=== PATIENT | male | born 1955 | race Caucasian/White ===

== ENCOUNTER 2022-07-25 17:16 | Emergency (ER) | payer MEDICARE, OTHER ==
[~2022-07-25] VITALS: Ht 157.5 cm; Wt 90.7 kg
[2022-07-25] MEDS ORDERED: CYCLOBENZAPRINE 10 MG TABLET PO ONE (18:00)
[2022-07-25] MEDS ORDERED: KETOROLAC TROMETHAMINE INJ 30 MG/ML VIAL IV ONE (18:00)
[2022-07-25] MEDS ORDERED: CYCLOBENZAPRINE 10 MG TABLET ONE (18:07)
[2022-07-25] MEDS ORDERED: KETOROLAC TROMETHAMINE INJ 30 MG/ML VIAL ONE (18:07)
--- NOTE | 2022-07-25 18:15 | NUR ---
medicated as ordered
--- NOTE | 2022-07-25 18:23 | NUR ---
PT REFUSED BLOOD DRAW. EXPLAINED IMPORTANCE OF BLOOD DRAW FOR DIAGNOSTIC PURPOSES BUT PT STILL REFUSED. DR. COSTA AWARE.
--- NOTE | 2022-07-25 18:23 | NUR ---
pt taken to CT
--- NOTE | 2022-07-25 18:24 | NUR ---
PT REFUSED CT SCAN; EXPLAINED IMPORTANCE OF PROCEDURE FOR DIAGNOSTIC PURPOSES BUT STILL REFUSED. DR COSTA AWARE
[2022-07-25] MEDS ORDERED: KETO10TA2 PO (18:57)
[2022-07-25] MEDS ORDERED: CYCL5TAB PO (18:57)
--- NOTE | 2022-07-25 19:20 | NUR ---
PT SIGNED DISCHARGE FORM.
--- NOTE | 2022-07-25 19:24 | NUR ---
ARRANGED [facility] BLS TRANSPORT BACK HOME. SPOKE WITH ERIN. ETA IS 30 MIN
--- NOTE | 2022-07-25 19:24 | NUR ---
NEW ADDRESS IS [facility] [address] [facility], [facility], [id number].
--- NOTE | 2022-07-25 20:04 | NUR ---
[facility] AT PT'S BEDSIDE FOR D/C TO HOME. DC PAPERWORK WITH PT.
[2022-07-25 20:13] VITALS: BP 139/90
== END 2022-07-25 20:10 | disposition home or self-care (01) ==
LOC: ER 17:26
DX: S39.012A Strain of muscle, fascia and tendon of lower back, initial encounter (principal); I10 Essential (primary) hypertension; Z79.899 Other long term (current) drug therapy; X58.XXXA Exposure to other specified factors, initial encounter; Y93.89 Activity, other specified; Y92.89 Other specified places as the place of occurrence of the external cause; Y99.8 Other external cause status
CPT/HCPCS: 99283; 96374; J1885